=== PATIENT | male | born 1945 | race Caucasian/White ===

== ENCOUNTER 2016-12-01 13:16 | Emergency (ER) | payer OTHER ==
[~2016-12-01] VITALS: Ht 195.6 cm; Wt 107.4 kg
[~2016-12-01 13:16] MED LIST: AMLODIPINE-BEN1 EAC3; Alphagan P 0.15% Oph LEFT EYE; HUMULIN N100 UNITS/ SQ; LUMIGAN 0.50 DROP/2.; Lotrel 5/10 PO; Lumigan 0.01% Ophth BOTH EYES; Lumigan 0.03% Ophth BOTH EYES; NEXIUM20 MG PO; Percocet 5/325,Endoc PO
[2016-12-01 13:48] LABS: POINT-OF-CARE METER ID UU13113702
[2016-12-01 14:49] LABS: POINT-OF-CARE METER ID UU13113702
[2016-12-01 15:00] VITALS: BP 114/66
[2016-12-02 13:27] LABS: POINT-OF-CARE METER ID UU13113702
== END 2016-12-01 15:26 | disposition home or self-care (01) ==
LOC: EME 13:16
PROVIDERS: Emergency Medicine
DX: E10.649 Type 1 diabetes mellitus with hypoglycemia without coma (principal); I10 Essential (primary) hypertension; Z87.442 Personal history of urinary calculi; Z79.4 Long term (current) use of insulin
CPT/HCPCS: 82948; 99281; 99285